=== PATIENT | female | born 2000 | race Caucasian/White ===

== ENCOUNTER 2022-02-28 00:11 | Day surgery (SDC) | payer BC, SELFPAY ==
[2022-02-14 11:44] VITALS: BMI 21.6
--- NOTE | 2022-02-28 07:52 | P.PNAN_ITS ---
Anes - Initial Pre Proc Eval Procedure: Operation Date: 02/28/22 12:30 Proposed Procedures p Colonoscopy - Justin Valdivia MD Date/Time: 02/28/22 07:52 Surgeon: Justin Valdivia MD Pre Op Diagnosis: colitis Patient Data Age: 21 Gender: F Height: 1.65 m Weight: 59 kg Allergies Allergy/AdvReac Type Severity Reaction Status Date / Time amoxicillin Allergy Unknown Facial Verified 02/28/22 11:10 swelling latex Allergy Unknown swelling Verified 02/28/22 11:10 Home Medications Medication Instructions Recorded Confirmed Type epinephrine 0.3 mg/0.3 mL 0.3 ml IM ONCE PRN anaphylaxis #2 04/06/21 02/14/22 Rx injection, auto-injector ea norethindrone 1 mg-ethinyl See Rx Instructions .Route 09/19/21 02/14/22 Rx estradiol 20 mcg (21)-iron 75 mg .COMPLEX #84 tabs (7) tablet ([place] Fe 10/06 (28)) cetirizine 10 mg tablet (Zyrtec) 10 mg PO DAILY 12/29/21 02/14/22 History famotidine 20 mg tablet (Pepcid AC) 20 mg PO BID 12/29/21 02/14/22 History hyoscyamine sulfate 0.125 mg tablet 0.125 mg PO QID PRN Pain 02/14/22 02/14/22 History mometasone 200 mcg/actuation HFA 2 inh inhalation BID 02/14/22 02/14/22 History aerosol inhaler (Asmanex HFA) montelukast 10 mg tablet 10 mg PO DAILY 02/14/22 02/14/22 History prednisone 20 mg tablet 40 mg PO DAILY 02/14/22 02/14/22 History Patient hx anesthesia problems: none Family hx anesthesia problems: none Results Review: All pre-operative results and documents have been reviewed as part of the pre- operative evaluation. [facility] Past Medical History Medical History (Updated 02/28/22 @ 07:52 by Rocael Enriqeuz DO) Asthma Colitis Contact dermatitis and other eczema, due to unspecified cause Gingivitis Shortness of breath Family History Family History Other Family history of cardiovascular disease Social History Social History Smoking status: Former smoker Alcohol intake: current Alcohol use details: SOCIALLY Substance use: current Substance use type: marijuana Other substance usage details: 2X WEEKLY Living arrangements: with family Spiritual care concerns: No Anes - Eval Final PreProcedure Day of Procedure 02/28/22 07:52 Patient weight: normal Heart: regular rate and rhythm Lungs: clear to auscultation Airway: Mallampati scale class II Neurological: alert and oriented Last oral intake: >/= 8 hours ASA classification: II Emergent: no Anesthetic plan: proceed Anesthesia type and monitoring: general GIVS and standard monitoring Results Review: All pre-operative results and documents have been reviewed as part of the pre- operative evaluation. Informed Consent: The patient's anesthetic plan and its attendant risks and benefits were discussed with the patient/family/POA. Questions were solicited and answers provided to the satisfaction of the patient/family/POA.
[2022-02-28 11:11] VITALS: BP 136/87; PULSE 115; RESP 18; TEMP 36.9; O2SAT 100
[2022-02-28] MEDS: LACTATED RINGERS 1,000 ML 150 ML IV CONT (11:24)
--- NOTE | 2022-02-28 12:02 | WPDGICN ---
Assessment and Plan Assessment and plan (1) Bloody diarrhea: Code(s): R19.7 - Diarrhea, unspecified Status: Acute Assessment and Plan: Patient with bloody diarrhea suspicious for inflammatory bowel disease. She is currently followed by Rheumatology with joint aches, oral ulcers, erythema nodosum. She has had some decrease in bleeding with trial of steroids for which she has been on for several months. Plan is for colonoscopy to assess more thoroughly. Further recommendations will be given after endoscopy. (2) Undifferentiated connective tissue disease: Code(s): M35.9 - Systemic involvement of connective tissue, unspecified Status: Acute Assessment and Plan: Patient with positive rheumatoid factor. Elevated CRP. Followed by Rheumatology currently with workup in progress. GI Consult Note Consult date/time: 02/28/22 12:02 Reason for consult: Bloody diarrhea. HPI: Iva Gage is a 21 year old female who is currently completing her 2nd year in college. Patient reports in October and November began to have diarrhea with blood in her stools. Stool cultures were negative. Patient did not respond antibiotic trial. Ultimately was felt to potentially have inflammatory bowel disease and given a trial of prednisone. She currently is maintained on 20mg of prednisone has been on various doses over the last several months. She notes that it has helped limit the bleeding but the diarrhea persist having 4 loose stools daily. Her family history is noncontributory. Patient was noted have an elevated CRP. Recently found to have a positive rheumatoid factor and currently followed by rheumatology trying to determine whether she has a rheumatologic condition. She is felt to have erythema nodosum. Oral ulcers and joint aches. There is concern over inflammatory bowel disease and patient now referred for colonoscopy to evaluate bloody diarrhea. As stated family history is noncontributory. Review of Systems Review of Systems: Review of systems otherwise noncontributory. [facility] Past Medical History Medical History (Updated 02/28/22 @ 12:05 by Justin Valdivia MD) Asthma Colitis Contact dermatitis and other eczema, due to unspecified cause Gingivitis Shortness of breath Family History Family History Other Family history of cardiovascular disease Social History Social History Smoking status: Former smoker Alcohol intake: current Alcohol use details: SOCIALLY Substance use: current Substance use type: marijuana Other substance usage details: 2X WEEKLY Living arrangements: with family Spiritual care concerns: No Meds Home Medications and Allergies Home Medications Medication Instructions Recorded Confirmed Type epinephrine 0.3 mg/0.3 mL 0.3 ml IM ONCE PRN anaphylaxis #2 04/06/21 02/14/22 Rx injection, auto-injector ea norethindrone 1 mg-ethinyl See Rx Instructions .Route 09/19/21 02/14/22 Rx estradiol 20 mcg (21)-iron 75 mg .COMPLEX #84 tabs (7) tablet ([place] Fe 10/06 (28)) cetirizine 10 mg tablet (Zyrtec) 10 mg PO DAILY 12/29/21 02/14/22 History famotidine 20 mg tablet (Pepcid AC) 20 mg PO BID 12/29/21 02/14/22 History hyoscyamine sulfate 0.125 mg tablet 0.125 mg PO QID PRN Pain 02/14/22 02/14/22 History mometasone 200 mcg/actuation HFA 2 inh inhalation BID 02/14/22 02/14/22 History aerosol inhaler (Asmanex HFA) montelukast 10 mg tablet 10 mg PO DAILY 02/14/22 02/14/22 History prednisone 20 mg tablet 40 mg PO DAILY 02/14/22 02/14/22 History Allergies Allergy/AdvReac Type Severity Reaction Status Date / Time amoxicillin Allergy Unknown Facial Verified 02/28/22 11:10 swelling latex Allergy Unknown swelling Verified 02/28/22 11:10 Vital Signs Vital Signs - 24 hr 02/28/22 11:11 Temperature 98.4 F Pulse Rate 115 H R
[2022-02-28 12:51] VITALS: BP 106/64; PULSE 89; RESP 20; O2SAT 100
[2022-02-28 13:01] VITALS: BP 103/72; PULSE 95; RESP 20; O2SAT 100
[2022-02-28 13:11] VITALS: BP 103/72; PULSE 86; RESP 23; O2SAT 100
== END 2022-02-28 13:35 | disposition home or self-care (01) ==
PROVIDERS: PCP Family Medicine; Visit Provider Internal Medicine Gastroenterology
PROC: 0DJD8ZZ Inspection of Lower Intestinal Tract, Via Natural or Artificial Opening Endoscopic (ICD-10-PCS; CPT 45378; principal; 2022-02-28 12:30)
DX: K50.111 Crohn's disease of large intestine with rectal bleeding (principal); M35.9 Systemic involvement of connective tissue, unspecified; J45.909 Unspecified asthma, uncomplicated; Z79.51 Long term (current) use of inhaled steroids; F12.90 Cannabis use, unspecified, uncomplicated
CPT/HCPCS: 45380; 88305; J2001; J2704; J7120

== ENCOUNTER 2022-03-21 10:28 | Outpatient (CLI) | payer BC, SELFPAY ==
[2022-03-21 10:59] LABS: Hematocrit 37.1 % (37.0-47.0); Hemoglobin 11.3 g/dL (12.0-15.0); Mean Corpuscular HGB Conc 30.5 g/dl (32-36); Mean Corpuscular Hemoglobin 24.1 pg (26-34); Mean Corpuscular Volume 79.3 fl (80-100); Mean Platelet Volume 8.5 fl (7.4-10.4); Platelet Count Result 548 k/mm3 (150-375); Red Blood Count 4.68 M/mm3 (4.2-5.4); Red Cell Distribution Width 17.2 % (11.5-14.5)
[2022-03-21 11:21] LABS: Alanine Aminotransferase 29 U/L (6-35); Alkaline Phosphatase 80 U/L (38-126); Anion Gap 6 mmol/L (8-16); Aspartate Amino Transferase 20 U/L (14-36); Bilirubin,Total 0.2 mg/dL (0.2-1.3); Blood Urea Nitrogen 10 mg/dL (7-17); Calcium 9.5 mg/dL (8.4-10.2); Carbon Dioxide 26 mmol/L (22-30); Chloride 106 mmol/L (98-107); Estimated Glomerular Filt Rate > 60; Glucose 130 mg/dL (65-110); Potassium 3.7 mmol/L (3.4-5.0); Sodium 138 mmol/L (137-145)
[2022-03-21 11:26] LABS: CRP 17.4 mg/dL (<1.0)
[2022-03-21 12:19] LABS: Folic Acid > 20.0 ng/mL (2.76->20)
[2022-03-21 12:36] LABS: Hepatitis B Surface Antigen Negative (Negative)
[2022-03-21 12:42] LABS: HAV RESULT Negative (Negative); Hepatitis B Core IgM Result Negative (Negative)
[2022-03-21 12:54] LABS: Hepatitis C Virus Antibody Negative (Negative)
[2022-03-21 13:04] LABS: Erythrocyte Sedimentation Rate 50 mm/hr (0-20)
[2022-03-21 14:11] LABS: Hepatitis B Surface Anti Res Indeterminate
[2022-03-23 15:27] LABS: Quantiferon TB Plus, 1T INDETERMINATE (NEGATIVE); TB1-NIL 0.01 IU/mL; TB2-NIL 0.02 IU/mL
[2022-03-23 23:57] LABS: Vitamin D 1,25 (OH)2 Total 92 pg/mL (18-72); Vitamin D2 1,25 (OH)2 <8 pg/mL; Vitamin D3 1,25 (OH)2 92 pg/mL
[2022-03-24 07:05] LABS: Hepatitis A Antibody Total Reactive (Nonreactive)
== END 2022-03-21 10:29 | disposition home or self-care (01) ==
PROVIDERS: PCP Family Medicine; Visit Provider Nurse Practitioner
DX: M35.9 Systemic involvement of connective tissue, unspecified (principal); L52 Erythema nodosum; K50.90 Crohn's disease, unspecified, without complications
CPT/HCPCS: 36415; 80053; 80074; 82607; 82652; 82746; 85027; 85652; 86140; 86480; 86706; 86708

== ENCOUNTER 2022-03-25 09:34 | Outpatient (CLI) | payer BC, SELFPAY ==
--- NOTE | ~2022-03-25 | XR_ITS ---
EXAMINATION: XR chest 2V 03/25/2022 10:12 INDICATION: Shortness of breath. Crohn's disease. PROCEDURE: 2 view chest COMPARISON: 08/29/2019 FINDINGS: The lungs are clear. The cardiomediastinal silhouette is within normal limits. There are no pleural effusions. There is no pneumothorax suspected. IMPRESSION: 1: NO ACUTE CARDIOPULMONARY DISEASE. Reviewed, dictated and finalized at location A.
--- NOTE | ~2022-03-25 | XR_ITS ---
EXAMINATION: XR UGIAC w small bowel DATE: 03/25/2022 11:07 INDICATION: Crohn's disease TECHNIQUE: The patient drank thick barium, gas-producing crystals, and thin barium. A total of 444 fl uoroscopic images of the esophagus, stomach, and proximal small bowel were obtained. 4 overhead radio graphs of the abdomen and pelvis were obtained. Fluoroscopy exposure time was 2.6 minutes. COMPARISON: None. FINDINGS: The esophagus is normal without mass or stricture. Esophageal motility is normal. There is no hiatal hernia. There was no gastroesophageal reflux with provocative maneuvers. The stomach and pr oximal small bowel are normal. Transit time to the colon was 15 minutes. Mucosal thickening with recio lestone appearance at the terminal ileum and adjacent more caudal loop of distal ileum in the lower p lala, both without evidence stricture on the 30 minute delayed overhead radiographs consistent with known history of Crohn's disease. There is an approximate 5 cm segment of small bowel, likely jejunum , in the left upper quadrant which demonstrates mild stenosis with additional irregular mucosal thick ening suspicious for additional Crohn's disease. No evident fistula formation.. IMPRESSION: 1. Irregular mucosal thickening with cobblestone appearance at the terminal ileum and adjacent loop o f distal ileum as well as along a 5 cm segment of more proximal jejunum in the left upper quadrant co nsistent with provided history of Crohn's disease. 2. Normal upper GI study. Reviewed, dictated and finalized at location A. IMPRESSION: 1. Irregular mucosal thickening with cobblestone appearance at the terminal ile um and adjacent loop of distal ileum as well as along a 5 cm segment of more pr oximal jejunum in the left upper quadrant consistent with provided history of C rohn's disease. 2. Normal upper GI study.
== END 2022-03-25 09:35 | disposition home or self-care (01) ==
PROVIDERS: PCP Family Medicine; Visit Provider Nurse Practitioner
DX: K50.90 Crohn's disease, unspecified, without complications (principal); R76.12 Nonspecific reaction to cell mediated immunity measurement of gamma interferon antigen response without active tuberculosis; Z79.899 Other long term (current) drug therapy
CPT/HCPCS: 71046; 74246; 74248

== ENCOUNTER 2023-03-12 11:54 | Outpatient (CLI) | payer BC, SELFPAY ==
[2023-03-12 15:58] LABS: Hematocrit 44.7 % (37.0-47.0); Hemoglobin 14.4 g/dL (12.0-15.0); Mean Corpuscular HGB Conc 32.2 g/dl (32-36); Mean Corpuscular Hemoglobin 29.2 pg (26-34); Mean Corpuscular Volume 90.7 fl (80-100); Mean Platelet Volume 10.3 fl (7.4-10.4); Platelet Count Result 273 k/mm3 (150-375); Red Blood Count 4.93 M/mm3 (4.2-5.4); Red Cell Distribution Width 13.1 % (11.5-14.5); White Blood Count 6.3 K/mm3 (4.5-10.0)
[2023-03-12 16:47] LABS: Erythrocyte Sedimentation Rate 6 mm/hr (0-20)
[2023-03-12 19:48] LABS: Iron 106 ug/dL (37-170)
[2023-03-12 19:57] LABS: Percent Iron Saturation 20 % (20-50)
[2023-03-12 19:59] LABS: Alanine Aminotransferase 30 U/L (6-35); Albumin Level 4.7 g/dL (3.5-5.1); Alkaline Phosphatase 46 U/L (38-126); Anion Gap 9 mmol/L (8-16); Aspartate Amino Transferase 49 U/L (14-36); Bilirubin,Total 0.5 mg/dL (0.2-1.3); Blood Urea Nitrogen 9 mg/dL (7-17); CRP 1.1 mg/dL (<1.0); Calcium 9.9 mg/dL (8.4-10.2); Carbon Dioxide 25 mmol/L (22-30); Chloride 106 mmol/L (98-107); Estimated Glomerular Filt Rate > 60; Glucose 94 mg/dL (65-110); Sodium 140 mmol/L (137-145)
[2023-03-12 21:02] LABS: Folic Acid > 20.0 ng/mL (2.76->20)
[2023-03-15 10:21] LABS: Vitamin D 1,25 (OH)2 Total 66 pg/mL (18-72); Vitamin D2 1,25 (OH)2 <8 pg/mL; Vitamin D3 1,25 (OH)2 66 pg/mL
== END 2023-03-12 11:55 | disposition home or self-care (01) ==
LOC: ANHGOSHLAB 11:55
PROVIDERS: PCP Family Medicine; Visit Provider Nurse Practitioner
DX: D50.9 Iron deficiency anemia, unspecified (principal); K50.90 Crohn's disease, unspecified, without complications; E53.8 Deficiency of other specified B group vitamins; Z79.899 Other long term (current) drug therapy
CPT/HCPCS: 36415; 80053; 82607; 82652; 82728; 82746; 83540; 83550; 85027; 85652; 86140